=== PATIENT | female | born 1945 ===

== ENCOUNTER 2019-12-13 18:34 | Emergency (ER) | payer MEDICARE ==
[~2019-12-13] VITALS: Ht 154.9 cm; Wt 77.3 kg
[2019-12-13 20:04] LABS: BASOPHILS % (AUTO) 0.4 % (0.0-2.0); EOSINOPHILS % (AUTO) 1.9 % (1.0-6.0); HEMATOCRIT 37.4 % (36-46); HEMOGLOBIN 12.1 g/dL (12.0-16.0); LYMPHOCYTES # (AUTO) 1.8 K/uL (1.0-4.8); LYMPHOCYTES % (AUTO) 21.8 % (22.0-44.0); MEAN CORPUSCULAR HEMOGLOBIN 27.4 pg (26.0-34.0); MEAN CORPUSCULAR HGB CONC 32.2 G/dL (31.0-37.0); MEAN CORPUSCULAR VOLUME 85 fL (80-100); MONOCYTES # (AUTO) 0.5 K/uL (0.1-1.0); MONOCYTES % (AUTO) 5.7 % (2.0-9.0); NEUTROPHILS # (AUTO) 5.7 K/uL (1.8-7.7); NEUTROPHILS % (AUTO) 70.2 % (40.0-70.0); PLATELET COUNT (AUTO) 307 K/uL (150-450); RED CELL DISTRIBUTION WIDTH 16.2 % (11.5-14.5)
[2019-12-13 20:25] LABS: ANION GAP 6 mmol/L (8-16); CALCIUM, TOTAL 8.8 mg/dL (8.8-10.5); CARBON DIOXIDE 31 mmol/L (22-29); CHLORIDE 108 mmol/L (98-107); CREATININE 0.85 mg/dL (0.60-1.30); GLUCOSE,RANDOM 112 mg/dL (70-110); POTASSIUM 3.4 mmol/L (3.5-5.1); SODIUM SERUM 145 mmol/L (136-145); UREA NITROGEN, BLOOD 12 mg/dL (7-18)
[2019-12-13 20:26] VITALS: BP 112/68
[2019-12-13 20:28] LABS: GLOMERULAR FILTR. RATE CALC > 60 mL/min (>60)
[2019-12-13 20:39] LABS: ALANINE AMINOTRANSFERASE 10 U/L (12-78); ALBUMIN 2.8 g/dL (3.4-5.0); ALKALINE PHOSPHATASE 74 U/L (46-116); ASPARTATE AMINOTRANSFERASE 14 U/L (15-37); BILIRUBIN,TOTAL 0.2 mg/dL (0.1-1.0); LIPASE 164 U/L (73-393); TOTAL PROTEIN, SERUM 6.4 g/dL (6.4-8.2)
[2019-12-13] MEDS ORDERED: DIPHENOXYLATE/ATROP 2.5-0.025 MG TABLET PO ONE (20:45)
[2019-12-13] MEDS: POTASSIUM CHLORIDE 20 MEQ ER TABLET PO ONE ×2 (21:06→21:33)
[2019-12-15 11:50] LABS: GLUCOSE,POINT OF CARE 107 MG/DL (70-110)
== END 2019-12-13 21:27 | disposition home or self-care (01) ==
LOC: EMS 19:36
DX: R19.7 Diarrhea, unspecified (principal); I48.91 Unspecified atrial fibrillation; J44.9 Chronic obstructive pulmonary disease, unspecified; E11.9 Type 2 diabetes mellitus without complications; I25.2 Old myocardial infarction; F17.210 Nicotine dependence, cigarettes, uncomplicated

== ENCOUNTER 2019-12-23 11:44 | Inpatient (IN) | payer MEDICARE, OTHER ==
[~2019-12-23] VITALS: Ht 154.9 cm; Wt 75.0 kg
[2019-12-23 12:03] LABS: GLUCOSE,POINT OF CARE 161 MG/DL (70-110)
[2019-12-23] MEDS ORDERED: MethylPREDNISolone SOD SUCC 125 MG/2 ML VIAL IVP ONE (12:15)
[2019-12-23 12:33] LABS: BASOPHILS % (AUTO) 1.2 % (0.0-2.0); EOSINOPHILS % (AUTO) 1.4 % (1.0-6.0); HEMOGLOBIN 13.1 g/dL (12.0-16.0); LYMPHOCYTES # (AUTO) 2.5 K/uL (1.0-4.8); LYMPHOCYTES % (AUTO) 29.4 % (22.0-44.0); MEAN CORPUSCULAR VOLUME 85 fL (80-100); MONOCYTES # (AUTO) 0.6 K/uL (0.1-1.0); MONOCYTES % (AUTO) 7.1 % (2.0-9.0); NEUTROPHILS # (AUTO) 5.2 K/uL (1.8-7.7); NEUTROPHILS % (AUTO) 60.9 % (40.0-70.0); PLATELET COUNT (AUTO) 284 K/uL (150-450); RED BLOOD CELL COUNT(AUTO) 4.85 MIL/uL (4.00-5.20); RED CELL DISTRIBUTION WIDTH 16.7 % (11.5-14.5)
[2019-12-23 12:42] LABS: ANION GAP 6 mmol/L (8-16); CALCIUM, TOTAL 9.3 mg/dL (8.8-10.5); CARBON DIOXIDE 32 mmol/L (22-29); CHLORIDE 106 mmol/L (98-107); CREATININE 0.66 mg/dL (0.60-1.30); GLUCOSE,RANDOM 140 mg/dL (70-110); POTASSIUM 3.4 mmol/L (3.5-5.1); SODIUM SERUM 144 mmol/L (136-145); UREA NITROGEN, BLOOD 11 mg/dL (7-18)
[2019-12-23 12:43] LABS: GLOMERULAR FILTR. RATE CALC > 60 mL/min (>60)
[2019-12-23 12:51] LABS: ALANINE AMINOTRANSFERASE 9 U/L (12-78); ALKALINE PHOSPHATASE 82 U/L (46-116); ASPARTATE AMINOTRANSFERASE 13 U/L (15-37); BILIRUBIN,TOTAL 0.3 mg/dL (0.1-1.0); TOTAL PROTEIN, SERUM 6.8 g/dL (6.4-8.2)
[2019-12-23 12:56] LABS: B-TYPE NATRIURETIC PEPTIDE 283 pg/mL (0-100)
[2019-12-23] MEDS ORDERED: FUROSEMIDE 40 MG/4 ML VIAL IVP ONE (13:00)
[2019-12-23] MEDS ORDERED: ONDANSETRON HCL 4 MG/2 ML VIAL IVP PRN (13:30)
[2019-12-23] MEDS ORDERED: ACETAMINOPHEN 325 MG TABLET PO PRN (13:30)
[2019-12-23 15:04] VITALS: BP 172/93
[2019-12-23] MEDS: IPRATROPIUM BROMIDE 0.5 MG/2.5 ML NEB SOLUTION NEB SCH ×3 (15:10→23:48)
[2019-12-23] MEDS: ALBUTEROL SULFATE 2.5 MG/0.5 ML NEB SOLUTION NEB SCH ×3 (15:11→23:48)
[2019-12-23 15:52] VITALS: BP 159/75
[2019-12-23 17:58] LABS: GLUCOMETER DEV NAME(LOC) 5S.1; GLUCOSE,POINT OF CARE 211 MG/DL (70-110)
[2019-12-23 19:52] VITALS: BP 136/72
[2019-12-23 22:22] LABS: GLUCOMETER DEV NAME(LOC) 5S.1; GLUCOSE,POINT OF CARE 189 MG/DL (70-110)
[2019-12-23] MEDS ORDERED: DEXTROSE 50%-WATER 25 GM/50 ML SYRINGE IVP PRN (22:45)
[2019-12-23] MEDS: INSULIN LISPRO 100 UNITS/ML SQ PRN (23:01)
[2019-12-24 00:13] VITALS: BP 105/56
[2019-12-24 02:30] LABS: GLUCOMETER DEV NAME(LOC) 5S.1; GLUCOSE,POINT OF CARE 323 MG/DL (70-110)
[2019-12-24] MEDS ORDERED: 0.9% SODIUM CHLORIDE 10 ML SYRINGE IVP PRN (03:15)
[2019-12-24] MEDS ORDERED: ALBUTEROL SULFATE 2.5 MG/0.5 ML NEB SOLUTION NEB PRN (03:15)
[2019-12-24] MEDS ORDERED: DEXTROSE 50%-WATER 25 GM/50 ML SYRINGE IVP PRN (03:15)
[2019-12-24] MEDS ORDERED: INSULIN LISPRO 100 UNITS/ML SQ PRN (03:15)
[2019-12-24] MEDS ORDERED: MAGNESIUM HYDROXIDE SUSPENSION 30 ML UDCUP PO PRN (03:15)
[2019-12-24] MEDS ORDERED: POTASSIUM CHL 10 MEQ/WATER 50 ML IV PRN (03:15)
[2019-12-24] MEDS ORDERED: POTASSIUM CHLORIDE 20 MEQ ER TABLET PO PRN (03:15)
[2019-12-24] MEDS ORDERED: OxyCODONE HCL/ACETAMINOPHEN 5-325 MG TABLET PO PRN ×2 (03:15)
[2019-12-24] MEDS ORDERED: ACETAMINOPHEN 325 MG TABLET PO PRN (03:15)
[2019-12-24] MEDS ORDERED: SODIUM CHLORIDE 0.9% 250 ML IV ONE (03:29)
[2019-12-24] MEDS: MethylPREDNISolone SOD SUCC 125 MG/2 ML VIAL IVP SCH ×4 (04:13→23:55)
[2019-12-24] MEDS: AZITHROMYCIN 500 MG/NS 250 ML IV SCH (04:13)
[2019-12-24 04:25] VITALS: BP 146/75
[2019-12-24] MEDS: INSULIN LISPRO 100 UNITS/ML SQ PRN ×4 (06:28→21:07)
[2019-12-24 07:03] LABS: GLUCOMETER DEV NAME(LOC) 5S.1; GLUCOSE,POINT OF CARE 185 MG/DL (70-110)
[2019-12-24 07:59] VITALS: BP 104/50
[2019-12-24] MEDS: IPRATROPIUM BROMIDE 0.5 MG/2.5 ML NEB SOLUTION NEB SCH ×3 (08:26→19:49)
[2019-12-24] MEDS: ALBUTEROL SULFATE 2.5 MG/0.5 ML NEB SOLUTION NEB SCH ×3 (08:26→19:49)
[2019-12-24] MEDS: ASPIRIN 81 MG CHEWABLE TABLET PO SCH (08:46)
[2019-12-24] MEDS: DOCUSATE SODIUM 100 MG CAPSULE PO SCH ×2 (08:47→21:05)
[2019-12-24] MEDS: FUROSEMIDE 20 MG/2 ML VIAL IVP SCH (08:47)
[2019-12-24] MEDS: FAMOTIDINE 10 MG/ML 2 ML VIAL IVP SCH (08:47)
[2019-12-24 11:18] VITALS: BP 146/51
[2019-12-24 16:24] VITALS: BP 147/67
[2019-12-24 20:45] VITALS: BP 152/60
[2019-12-25] VITALS (7 sets, daily range): BP systolic 125–159; BP diastolic 56–89
[2019-12-25 00:11] LABS: GLUCOMETER DEV NAME(LOC) 5S.1; GLUCOSE,POINT OF CARE 319 MG/DL (70-110)
[2019-12-25 00:11] LABS: GLUCOMETER DEV NAME(LOC) 5S.1; GLUCOSE,POINT OF CARE 367 MG/DL (70-110)
[2019-12-25] MEDS: AZITHROMYCIN 500 MG/NS 250 ML IV SCH (02:21)
[2019-12-25] MEDS: ALBUTEROL SULFATE 2.5 MG/0.5 ML NEB SOLUTION NEB SCH ×4 (02:22→20:21)
[2019-12-25] MEDS: IPRATROPIUM BROMIDE 0.5 MG/2.5 ML NEB SOLUTION NEB SCH ×4 (02:22→20:21)
[2019-12-25] MEDS: INSULIN LISPRO 100 UNITS/ML SQ PRN ×4 (06:35→21:01)
[2019-12-25 08:08] LABS: HEMATOCRIT 37.4 % (36-46); HEMOGLOBIN 11.7 g/dL (12.0-16.0); MEAN CORPUSCULAR HEMOGLOBIN 26.6 pg (26.0-34.0); MEAN CORPUSCULAR HGB CONC 31.4 G/dL (31.0-37.0); MEAN CORPUSCULAR VOLUME 85 fL (80-100); PLATELET COUNT (AUTO) 309 K/uL (150-450); RED BLOOD CELL COUNT(AUTO) 4.42 MIL/uL (4.00-5.20); RED CELL DISTRIBUTION WIDTH 17.2 % (11.5-14.5)
[2019-12-25 08:16] LABS: CALCIUM, TOTAL 9.2 mg/dL (8.8-10.5); CREATININE 0.91 mg/dL (0.60-1.30); POTASSIUM 4.1 mmol/L (3.5-5.1)
[2019-12-25] MEDS: DOCUSATE SODIUM 100 MG CAPSULE PO SCH ×2 (09:00→21:00)
[2019-12-25 09:12] LABS: BAND NEUTROPHILS % (MANUAL) 5 % (0-5); LYMPHOCYTES % (MANUAL) 4 % (22-44); MONOCYTES % (MANUAL) 1 % (2-9); SEGMENTED NEUTROPHILS % 90 % (40-70); WBC MORPHOLOGY TOXIC GRANULATION
[2019-12-25] MEDS: MethylPREDNISolone SOD SUCC 125 MG/2 ML VIAL IVP SCH ×2 (09:19→15:42)
[2019-12-25] MEDS: FUROSEMIDE 20 MG/2 ML VIAL IVP SCH (09:19)
[2019-12-25] MEDS: FAMOTIDINE 10 MG/ML 2 ML VIAL IVP SCH (09:20)
[2019-12-25] MEDS: ASPIRIN 81 MG CHEWABLE TABLET PO SCH (09:20)
[2019-12-25] MEDS: AmLODIPine BESYLATE 5 MG TABLET PO SCH (16:31)
[2019-12-25] MEDS: PredniSONE 20 MG TABLET PO SCH (21:00)
[2019-12-26] MEDS: IPRATROPIUM BROMIDE 0.5 MG/2.5 ML NEB SOLUTION NEB SCH ×4 (02:00→20:24)
[2019-12-26] MEDS: ALBUTEROL SULFATE 2.5 MG/0.5 ML NEB SOLUTION NEB SCH ×4 (02:00→20:24)
[2019-12-26] MEDS: AZITHROMYCIN 500 MG/NS 250 ML IV SCH (03:25)
[2019-12-26 04:50] VITALS: BP 147/72
[2019-12-26 06:08] LABS: GLUCOMETER DEV NAME(LOC) 5S.2A; GLUCOSE,POINT OF CARE 157 MG/DL (70-110)
[2019-12-26 06:08] LABS: GLUCOMETER DEV NAME(LOC) 5S.2A; GLUCOSE,POINT OF CARE 141 MG/DL (70-110)
[2019-12-26] MEDS: INSULIN LISPRO 100 UNITS/ML SQ PRN ×4 (06:23→22:27)
[2019-12-26] MEDS: AmLODIPine BESYLATE 5 MG TABLET PO SCH (09:45)
[2019-12-26] MEDS: PredniSONE 20 MG TABLET PO SCH ×2 (09:46→22:09)
[2019-12-26] MEDS: ASPIRIN 81 MG CHEWABLE TABLET PO SCH (09:46)
[2019-12-26] MEDS: DOCUSATE SODIUM 100 MG CAPSULE PO SCH ×2 (09:46→22:09)
[2019-12-26] MEDS: FUROSEMIDE 20 MG/2 ML VIAL IVP SCH (09:47)
[2019-12-26] MEDS: FAMOTIDINE 10 MG/ML 2 ML VIAL IVP SCH (11:13)
[2019-12-26 12:00] VITALS: BP 125/75
[2019-12-26 16:02] LABS: ABG A-A DIFF O2 52.7 mmHg (10-20.0); ABG BASE EXCESS 1.4 mmol/L (-2.0-3.0); ABG CARBOXYHEMOGLOBIN 0.6 % (0.0-1.5); ABG HCO3 25.5 mmol/L (22.0-26.0); ABG METHEMOGLOBIN 0.1 % (0.0-1.5); ABG OXYGEN CONTENT 15.1 mL/dL (15.0-23.0); ABG OXYGEN SATURATION 84.7 % (95.0-98.0); ABG OXYHEMOGLOBIN 84.1 % (94.0-100.0); ABG PCO2 39 mmHg (35-45); ABG TOTAL HEMOGLOBIN 12.8 G/dL (12.0-18.0); PO2, ARTERIAL BG 50.8 mmHg (75.0-83.0); SOURCE, BLOOD GAS ARTERIAL; TEMPERATURE, FAHRENHEIT, BG 98.8 FAHREN (96.0-98.6)
[2019-12-26 16:03] LABS: O2 DEVICE,BLOOD GAS ROOM AIR (ROOM AIR); SITE, BLOOD GAS LFT BRACHIAL
[2019-12-26 18:14] LABS: GLUCOMETER DEV NAME(LOC) 5S.1; GLUCOSE,POINT OF CARE 291 MG/DL (70-110)
[2019-12-26 18:14] LABS: GLUCOMETER DEV NAME(LOC) 5S.1; GLUCOSE,POINT OF CARE 188 MG/DL (70-110)
[2019-12-26 18:14] LABS: GLUCOMETER DEV NAME(LOC) 5S.2A; GLUCOSE,POINT OF CARE 235 MG/DL (70-110)
[2019-12-26 18:15] LABS: GLUCOMETER DEV NAME(LOC) 5S.1; GLUCOSE,POINT OF CARE 240 MG/DL (70-110)
[2019-12-26 18:15] LABS: GLUCOMETER DEV NAME(LOC) 5S.1; GLUCOSE,POINT OF CARE 192 MG/DL (70-110)
[2019-12-26 18:15] LABS: GLUCOMETER DEV NAME(LOC) 5S.1; GLUCOSE,POINT OF CARE 292 MG/DL (70-110)
[2019-12-26 18:15] LABS: GLUCOMETER DEV NAME(LOC) 5S.1; GLUCOSE,POINT OF CARE 349 MG/DL (70-110)
[2019-12-26 21:05] VITALS: BP 145/71
[2019-12-26 22:32] LABS: GLUCOMETER DEV NAME(LOC) 5S.2A; GLUCOSE,POINT OF CARE 230 MG/DL (70-110)
[2019-12-27] VITALS: BP 155/74
[2019-12-27] MEDS: IPRATROPIUM BROMIDE 0.5 MG/2.5 ML NEB SOLUTION NEB SCH ×3 (02:00→14:26)
[2019-12-27] MEDS: ALBUTEROL SULFATE 2.5 MG/0.5 ML NEB SOLUTION NEB SCH ×3 (02:00→14:26)
[2019-12-27 04:52] VITALS: BP 150/82
[2019-12-27] MEDS: AZITHROMYCIN 500 MG/NS 250 ML IV SCH (04:54)
[2019-12-27] MEDS: INSULIN LISPRO 100 UNITS/ML SQ PRN ×3 (06:47→18:12)
[2019-12-27 07:31] LABS: GLUCOMETER DEV NAME(LOC) 5S.1; GLUCOSE,POINT OF CARE 227 MG/DL (70-110)
[2019-12-27 08:23] VITALS: BP 127/78
[2019-12-27] MEDS: FUROSEMIDE 20 MG/2 ML VIAL IVP SCH (09:00)
[2019-12-27] MEDS: FAMOTIDINE 10 MG/ML 2 ML VIAL IVP SCH (09:00)
[2019-12-27] MEDS: PredniSONE 20 MG TABLET PO SCH ×2 (10:28→20:15)
[2019-12-27] MEDS: ASPIRIN 81 MG CHEWABLE TABLET PO SCH (10:28)
[2019-12-27] MEDS: AmLODIPine BESYLATE 5 MG TABLET PO SCH (10:29)
[2019-12-27] MEDS: DOCUSATE SODIUM 100 MG CAPSULE PO SCH ×2 (10:30→20:15)
[2019-12-27 11:40] VITALS: BP 129/58
[2019-12-27 14:44] LABS: GLUCOMETER DEV NAME(LOC) 5S.1; GLUCOSE,POINT OF CARE 172 MG/DL (70-110)
[2019-12-27] MEDS ORDERED: ASPI-728 PO (15:26)
[2019-12-27] MEDS ORDERED: PRED20 PO (15:26)
[2019-12-27] MEDS ORDERED: IPRNEB NEB (15:26)
[2019-12-27] MEDS ORDERED: AUD NEB (15:26)
[2019-12-27 15:30] VITALS: BP 113/73
[2019-12-27] MEDS ORDERED: AMLO5TAB9 PO (19:09)
[2019-12-27 20:33] VITALS: BP 153/83
[2019-12-28 06:00] LABS: GLUCOMETER DEV NAME(LOC) 5S.2A; GLUCOSE,POINT OF CARE 244 MG/DL (70-110)
== END 2019-12-27 20:25 | disposition home or self-care (01) | DRG 189 ==
LOC: EMS 11:45 → 5S 13:33
PROVIDERS: ADMIT Internal Medicine; ATTEND Internal Medicine
DX: J96.01 Acute respiratory failure with hypoxia (principal); J44.1 Chronic obstructive pulmonary disease with (acute) exacerbation; I48.91 Unspecified atrial fibrillation; E11.9 Type 2 diabetes mellitus without complications; F17.200 Nicotine dependence, unspecified, uncomplicated; I50.9 Heart failure, unspecified; I25.2 Old myocardial infarction
CPT/HCPCS: 36600; 82805; 84132; 93005; 94640; 99291; G0378; J0456; J1940; J2930; J3490; J7050

== ENCOUNTER 2020-05-07 00:06 | Emergency (ER) | payer MEDICARE, OTHER ==
[~2020-05-07] VITALS: Ht 154.9 cm; Wt 68.2 kg
[~2020-05-07 00:06] MED LIST: AMLO5TAB9 PO; ASPI-728 PO; AUD NEB; IPRNEB NEB; PRED20 PO
[2020-05-07] MEDS ORDERED: METF-960 PO (02:53)
[2020-05-07] MEDS ORDERED: INSU100V SQ (02:53)
[2020-05-07] MEDS ORDERED: MetFORMIN HCL 500 MG TABLET PO ONE (04:00)
[2020-05-07 05:09] VITALS: BP 138/74
== END 2020-05-07 05:52 | disposition home or self-care (01) ==
LOC: EMS 00:07
DX: E11.9 Type 2 diabetes mellitus without complications (principal); I48.91 Unspecified atrial fibrillation; J44.9 Chronic obstructive pulmonary disease, unspecified; I25.2 Old myocardial infarction; F17.210 Nicotine dependence, cigarettes, uncomplicated; Z79.82 Long term (current) use of aspirin; Z79.84 Long term (current) use of oral hypoglycemic drugs; Z79.4 Long term (current) use of insulin

== ENCOUNTER 2020-05-07 05:53 | Inpatient (IN) | payer MEDICARE, MEDICAID ==
[~2020-05-07] VITALS: Ht 154.9 cm; Wt 70.4 kg
[~2020-05-07 05:53] MED LIST changes: +INSU100V SQ; +METF-960 PO
[2020-05-07] MEDS ORDERED: SODIUM CHLORIDE 0.9% 500 ML IV ONE (06:15)
[2020-05-07 06:28] LABS: BASOPHILS % (AUTO) 0.4 % (0.0-2.0); EOSINOPHILS % (AUTO) 0.7 % (1.0-6.0); HEMATOCRIT 25.1 % (36-46); HEMOGLOBIN 7.8 g/dL (12.0-16.0); LYMPHOCYTES # (AUTO) 1.2 K/uL (1.0-4.8); MEAN CORPUSCULAR HEMOGLOBIN 25.1 pg (26.0-34.0); MEAN CORPUSCULAR VOLUME 81 fL (80-100); MONOCYTES # (AUTO) 0.6 K/uL (0.1-1.0); MONOCYTES % (AUTO) 6.6 % (2.0-9.0); NEUTROPHILS # (AUTO) 6.8 K/uL (1.8-7.7); NEUTROPHILS % (AUTO) 78.3 % (40.0-70.0); PLATELET COUNT (AUTO) 290 K/uL (150-450); RED CELL DISTRIBUTION WIDTH 18.6 % (11.5-14.5)
[2020-05-07] MEDS ORDERED: SODIUM CHLORIDE 0.9% 1,000 ML IV ONE (06:45)
[2020-05-07] MEDS ORDERED: AZITHROMYCIN 500 MG/NS 250 ML IV ONE ×2 (07:00→07:15)
[2020-05-07 07:07] LABS: ALANINE AMINOTRANSFERASE 16 U/L (12-78); ALKALINE PHOSPHATASE 67 U/L (46-116); ANION GAP 10 mmol/L (8-16); ASPARTATE AMINOTRANSFERASE 10 U/L (15-37); BILIRUBIN,TOTAL 0.5 mg/dL (0.1-1.0); CALCIUM, TOTAL 8.8 mg/dL (8.8-10.5); CARBON DIOXIDE 25 mmol/L (22-29); CHLORIDE 103 mmol/L (98-107); CREATINE KINASE, TOTAL ONLY 30 U/L (26-192); CREATININE 0.89 mg/dL (0.60-1.30); GLUCOSE,RANDOM 244 mg/dL (70-110); SODIUM SERUM 138 mmol/L (136-145); THYROID STIMULATING HORMONE 1.02 uIU/mL (0.36-3.74); TOTAL PROTEIN, SERUM 6.7 g/dL (6.4-8.2); UREA NITROGEN, BLOOD 22 mg/dL (7-18)
[2020-05-07 07:15] LABS: GLOMERULAR FILTR. RATE CALC > 60 mL/min (>60); POTASSIUM 2.7 mmol/L (3.5-5.1)
[2020-05-07] MEDS ORDERED: CefTRIAXone 1 GM/DEXTROSE 50 ML IV ONE (07:15)
[2020-05-07] MEDS ORDERED: POTASSIUM CHLORIDE 20 MEQ ER TABLET PO ONE (07:15)
[2020-05-07] MEDS ORDERED: ASPIRIN 325 MG TABLET PO ONE (07:45)
[2020-05-07] MEDS: POTASSIUM CHL 10 MEQ/WATER 50 ML IV SCH ×4 (08:29→16:55)
[2020-05-07] MEDS ORDERED: DEXTROSE 50%-WATER 25 GM/50 ML SYRINGE IVP PRN (10:45)
[2020-05-07] MEDS ORDERED: ACETAMINOPHEN 325 MG TABLET PO PRN (11:00)
[2020-05-07] MEDS ORDERED: BISACODYL 10 MG RECTAL RECTAL SUPPOSITORY PR PRN (11:00)
[2020-05-07] MEDS ORDERED: DOCUSATE SODIUM 100 MG CAPSULE PO PRN (11:00)
[2020-05-07] MEDS ORDERED: ONDANSETRON HCL 4 MG/2 ML VIAL IVP PRN (11:00)
[2020-05-07] MEDS ORDERED: ALBUTEROL SULFATE/IPRATROPIUM 100-20 MCG/SPRAY 4 GM INHALER IH PRN (11:00)
[2020-05-07] MEDS ORDERED: MAGNESIUM HYDROXIDE SUSPENSION 30 ML UDCUP PO PRN (11:00)
[2020-05-07] MEDS ORDERED: 0.9% SODIUM CHLORIDE 10 ML SYRINGE IVP PRN (11:00)
[2020-05-07] MEDS: ALBUTEROL SULFATE/IPRATROPIUM 100-20 MCG/SPRAY 4 GM INHALER IH SCH ×3 (12:00→22:01)
[2020-05-07] MEDS: PANTOPRAZOLE SODIUM 40 MG DR TABLET PO SCH (12:33)
[2020-05-07] MEDS: CARVEDILOL 3.125 MG TABLET PO SCH ×2 (12:33→21:15)
[2020-05-07] MEDS: LOSARTAN POTASSIUM 25 MG TABLET PO SCH ×2 (12:34→21:15)
[2020-05-07] MEDS ORDERED: SODIUM CHLORIDE 0.9% 250 ML IV ONE (14:10)
[2020-05-07 14:54] VITALS: BP 123/55
[2020-05-07 16:00] VITALS: BP 132/55
[2020-05-07] MEDS: INSULIN LISPRO 100 UNITS/ML SQ PRN ×2 (18:12→21:41)
[2020-05-07 19:30] VITALS: BP 141/50
[2020-05-07 20:24] LABS: GLUCOMETER DEV NAME(LOC) 5S.1; GLUCOSE,POINT OF CARE 147 MG/DL (70-110)
[2020-05-07 21:50] LABS: GLUCOMETER DEV NAME(LOC) 5N.3; GLUCOSE,POINT OF CARE 201 MG/DL (70-110)
[2020-05-07 23:33] VITALS: BP 158/66
[2020-05-08 04:59] VITALS: BP 148/62
[2020-05-08] MEDS: ALBUTEROL SULFATE/IPRATROPIUM 100-20 MCG/SPRAY 4 GM INHALER IH SCH ×4 (05:26→17:04)
[2020-05-08] MEDS: INSULIN LISPRO 100 UNITS/ML SQ PRN ×4 (06:07→22:41)
[2020-05-08 08:31] LABS: HEMOGLOBIN A1C 7.9 % (3.8-5.6)
[2020-05-08 08:33] VITALS: BP 103/59
[2020-05-08 08:37] LABS: % IRON SATURATION 3.4 % (22-44); IRON, SERUM 12 mcg/dL (50-175); TOTAL IRON BINDING CAPACITY 347 mcg/dL (250-450)
[2020-05-08] MEDS: PANTOPRAZOLE SODIUM 40 MG DR TABLET PO SCH (08:47)
[2020-05-08] MEDS: CARVEDILOL 3.125 MG TABLET PO SCH ×2 (08:47→21:00)
[2020-05-08] MEDS: LOSARTAN POTASSIUM 25 MG TABLET PO SCH ×2 (08:48→21:00)
[2020-05-08] MEDS: AmLODIPine BESYLATE 5 MG TABLET PO SCH (08:51)
[2020-05-08] MEDS ORDERED: ASPIRIN 81 MG CHEWABLE TABLET PO SCH ×2 (09:00)
[2020-05-08 09:08] LABS: ALANINE AMINOTRANSFERASE 15 U/L (12-78); ALBUMIN 2.7 g/dL (3.4-5.0); ALKALINE PHOSPHATASE 61 U/L (46-116); ANION GAP 10 mmol/L (8-16); ASPARTATE AMINOTRANSFERASE 13 U/L (15-37); BILIRUBIN,TOTAL 0.4 mg/dL (0.1-1.0); CALCIUM, TOTAL 8.7 mg/dL (8.8-10.5); CARBON DIOXIDE 25 mmol/L (22-29); CHLORIDE 106 mmol/L (98-107); CREATININE 0.79 mg/dL (0.60-1.30); FERRITIN 61 ng/mL (8-252); FREE T4 (FREE THYROXINE) 1.03 ng/dL (0.76-1.46); GLUCOSE,RANDOM 178 mg/dL (70-110); SODIUM SERUM 141 mmol/L (136-145); THYROID STIMULATING HORMONE 0.61 uIU/mL (0.36-3.74); TOTAL PROTEIN, SERUM 6.4 g/dL (6.4-8.2); UREA NITROGEN, BLOOD 20 mg/dL (7-18)
[2020-05-08 09:09] LABS: GLOMERULAR FILTR. RATE CALC > 60 mL/min (>60)
[2020-05-08] MEDS ORDERED: MAGNESIUM SULFATE 4 GM/WATER 100 ML IV PRN (09:30)
[2020-05-08] MEDS ORDERED: POTASSIUM CHL 10 MEQ/WATER 50 ML IV PRN (09:30)
[2020-05-08] MEDS ORDERED: MAGNESIUM SULFATE 2 GM/WATER 50 ML IV PRN (09:30)
[2020-05-08] MEDS ORDERED: MAGNESIUM OXIDE 400 MG TABLET PO PRN (09:30)
[2020-05-08] MEDS ORDERED: POTASSIUM CHLORIDE 20 MEQ ER TABLET PO PRN (09:30)
[2020-05-08 09:31] LABS: BASOPHILS % (AUTO) 0.2 % (0.0-2.0); EOSINOPHILS % (AUTO) 0.8 % (1.0-6.0); HEMOGLOBIN 7.7 g/dL (12.0-16.0); LYMPHOCYTES # (AUTO) 1.3 K/uL (1.0-4.8); LYMPHOCYTES % (AUTO) 12.2 % (22.0-44.0); MEAN CORPUSCULAR HGB CONC 30.6 G/dL (31.0-37.0); MEAN CORPUSCULAR VOLUME 82 fL (80-100); MONOCYTES # (AUTO) 0.7 K/uL (0.1-1.0); MONOCYTES % (AUTO) 6.5 % (2.0-9.0); NEUTROPHILS # (AUTO) 8.6 K/uL (1.8-7.7); NEUTROPHILS % (AUTO) 80.3 % (40.0-70.0); PLATELET COUNT (AUTO) 275 K/uL (150-450); RED BLOOD CELL COUNT(AUTO) 3.06 MIL/uL (4.00-5.20); RED CELL DISTRIBUTION WIDTH 18.1 % (11.5-14.5)
[2020-05-08 10:00] VITALS: BP_SYST 130; BP_SYST 133; BP_SYST 93; BP_DIAS 57; BP_DIAS 58; BP_DIAS 84
[2020-05-08 12:50] VITALS: BP 130/84
[2020-05-08] MEDS: FERROUS SULFATE 325 MG EC TABLET PO SCH ×2 (13:13→17:01)
[2020-05-08 16:30] VITALS: BP 106/60
[2020-05-08 18:20] LABS: GLUCOMETER DEV NAME(LOC) 5S.2A; GLUCOSE,POINT OF CARE 169 MG/DL (70-110)
[2020-05-08 20:30] VITALS: BP 99/60
[2020-05-08] MEDS: DOCUSATE SODIUM 100 MG CAPSULE PO SCH (21:00)
[2020-05-08 22:31] LABS: GLUCOMETER DEV NAME(LOC) 5N.3; GLUCOSE,POINT OF CARE 151 MG/DL (70-110)
[2020-05-09 00:28] VITALS: BP 98/75
[2020-05-09] MEDS: ALBUTEROL SULFATE/IPRATROPIUM 100-20 MCG/SPRAY 4 GM INHALER IH SCH ×4 (00:50→18:00)
[2020-05-09 02:39] LABS: GLUCOMETER DEV NAME(LOC) 5S.2A; GLUCOSE,POINT OF CARE 251 MG/DL (70-110)
[2020-05-09 04:27] VITALS: BP 98/51
[2020-05-09] MEDS: INSULIN LISPRO 100 UNITS/ML SQ PRN ×4 (06:08→21:23)
[2020-05-09 08:08] VITALS: BP 154/61
[2020-05-09] MEDS: DOCUSATE SODIUM 100 MG CAPSULE PO SCH ×2 (08:17→20:51)
[2020-05-09] MEDS: FERROUS SULFATE 325 MG EC TABLET PO SCH ×3 (08:17→18:22)
[2020-05-09] MEDS: PANTOPRAZOLE SODIUM 40 MG DR TABLET PO SCH (08:17)
[2020-05-09] MEDS: CARVEDILOL 3.125 MG TABLET PO SCH ×2 (08:19→20:51)
[2020-05-09] MEDS: LOSARTAN POTASSIUM 25 MG TABLET PO SCH ×2 (08:19→20:50)
[2020-05-09] MEDS: AmLODIPine BESYLATE 5 MG TABLET PO SCH (09:00)
[2020-05-09 09:04] LABS: BASOPHILS % (AUTO) 0.8 % (0.0-2.0); EOSINOPHILS % (AUTO) 0.8 % (1.0-6.0); HEMOGLOBIN 8.6 g/dL (12.0-16.0); LYMPHOCYTES # (AUTO) 1.3 K/uL (1.0-4.8); LYMPHOCYTES % (AUTO) 13.9 % (22.0-44.0); MEAN CORPUSCULAR HEMOGLOBIN 24.7 pg (26.0-34.0); MEAN CORPUSCULAR HGB CONC 30.8 G/dL (31.0-37.0); MEAN CORPUSCULAR VOLUME 80 fL (80-100); MONOCYTES # (AUTO) 0.6 K/uL (0.1-1.0); MONOCYTES % (AUTO) 6.6 % (2.0-9.0); NEUTROPHILS # (AUTO) 7.4 K/uL (1.8-7.7); NEUTROPHILS % (AUTO) 77.9 % (40.0-70.0); PLATELET COUNT (AUTO) 316 K/uL (150-450); RED BLOOD CELL COUNT(AUTO) 3.49 MIL/uL (4.00-5.20); RED CELL DISTRIBUTION WIDTH 18.8 % (11.5-14.5)
[2020-05-09 09:08] LABS: GLUCOMETER DEV NAME(LOC) 5S.2A; GLUCOSE,POINT OF CARE 155 MG/DL (70-110)
[2020-05-09 09:22] LABS: ALANINE AMINOTRANSFERASE 15 U/L (12-78); ALKALINE PHOSPHATASE 65 U/L (46-116); ANION GAP 10 mmol/L (8-16); ASPARTATE AMINOTRANSFERASE 11 U/L (15-37); BILIRUBIN,TOTAL 0.4 mg/dL (0.1-1.0); CARBON DIOXIDE 27 mmol/L (22-29); CHLORIDE 107 mmol/L (98-107); CREATININE 0.66 mg/dL (0.60-1.30); GLUCOSE,RANDOM 135 mg/dL (70-110); POTASSIUM 3.2 mmol/L (3.5-5.1); SODIUM SERUM 144 mmol/L (136-145); TOTAL PROTEIN, SERUM 7.1 g/dL (6.4-8.2); UREA NITROGEN, BLOOD 12 mg/dL (7-18)
[2020-05-09 09:27] LABS: GLOMERULAR FILTR. RATE CALC > 60 mL/min (>60)
[2020-05-09 09:53] LABS: CALCIUM, TOTAL 8.9 mg/dL (8.8-10.5)
[2020-05-09 11:57] VITALS: BP 142/62
[2020-05-09] MEDS ORDERED: SODIUM CHLORIDE 0.9% 100 ML ONE (12:28)
[2020-05-09] MEDS ORDERED: IOVERSOL 350 MG/ML 100 ML VIAL ONE (12:28)
[2020-05-09] MEDS: ASPIRIN 81 MG CHEWABLE TABLET PO SCH (13:03)
[2020-05-09 15:46] VITALS: BP 113/54
[2020-05-09 20:30] VITALS: BP 115/51
[2020-05-09] MEDS: ATORVASTATIN CALCIUM 10 MG TABLET PO SCH (20:50)
[2020-05-10 00:15] VITALS: BP 126/68
[2020-05-10] MEDS: ALBUTEROL SULFATE/IPRATROPIUM 100-20 MCG/SPRAY 4 GM INHALER IH SCH ×5 (00:29→23:02)
[2020-05-10 04:20] VITALS: BP 126/52
[2020-05-10 05:39] LABS: GLUCOMETER DEV NAME(LOC) 5S.2A; GLUCOSE,POINT OF CARE 156 MG/DL (70-110)
[2020-05-10] MEDS: INSULIN LISPRO 100 UNITS/ML SQ PRN ×3 (06:35→20:59)
[2020-05-10 07:10] LABS: BASOPHILS % (AUTO) 0.8 % (0.0-2.0); HEMATOCRIT 27.3 % (36-46); HEMOGLOBIN 8.6 g/dL (12.0-16.0); LYMPHOCYTES # (AUTO) 1.1 K/uL (1.0-4.8); LYMPHOCYTES % (AUTO) 9.3 % (22.0-44.0); MEAN CORPUSCULAR HGB CONC 31.3 G/dL (31.0-37.0); MEAN CORPUSCULAR VOLUME 80 fL (80-100); MONOCYTES # (AUTO) 0.6 K/uL (0.1-1.0); MONOCYTES % (AUTO) 5.5 % (2.0-9.0); NEUTROPHILS # (AUTO) 9.6 K/uL (1.8-7.7); NEUTROPHILS % (AUTO) 83.4 % (40.0-70.0); PLATELET COUNT (AUTO) 329 K/uL (150-450); RED BLOOD CELL COUNT(AUTO) 3.43 MIL/uL (4.00-5.20); RED CELL DISTRIBUTION WIDTH 18.7 % (11.5-14.5)
[2020-05-10 07:16] LABS: ALANINE AMINOTRANSFERASE 13 U/L (12-78); ALBUMIN 3.1 g/dL (3.4-5.0); ALKALINE PHOSPHATASE 68 U/L (46-116); ANION GAP 10 mmol/L (8-16); ASPARTATE AMINOTRANSFERASE 14 U/L (15-37); BILIRUBIN,TOTAL 0.5 mg/dL (0.1-1.0); CALCIUM, TOTAL 8.8 mg/dL (8.8-10.5); CARBON DIOXIDE 28 mmol/L (22-29); CHLORIDE 104 mmol/L (98-107); CREATININE 0.67 mg/dL (0.60-1.30); GLUCOSE,RANDOM 171 mg/dL (70-110); SODIUM SERUM 142 mmol/L (136-145); TOTAL PROTEIN, SERUM 6.5 g/dL (6.4-8.2); UREA NITROGEN, BLOOD 12 mg/dL (7-18)
[2020-05-10 07:25] LABS: GLOMERULAR FILTR. RATE CALC > 60 mL/min (>60)
[2020-05-10] MEDS: ASPIRIN 81 MG CHEWABLE TABLET PO SCH (09:04)
[2020-05-10] MEDS: PANTOPRAZOLE SODIUM 40 MG DR TABLET PO SCH (09:04)
[2020-05-10] MEDS: LOSARTAN POTASSIUM 25 MG TABLET PO SCH ×2 (09:05→20:59)
[2020-05-10] MEDS: FERROUS SULFATE 325 MG EC TABLET PO SCH ×3 (09:05→18:01)
[2020-05-10] MEDS: AmLODIPine BESYLATE 5 MG TABLET PO SCH (09:05)
[2020-05-10] MEDS: CARVEDILOL 3.125 MG TABLET PO SCH ×2 (09:05→20:56)
[2020-05-10] MEDS: DOCUSATE SODIUM 100 MG CAPSULE PO SCH ×2 (09:05→20:56)
[2020-05-10 09:06] VITALS: BP 141/53
[2020-05-10 10:26] VITALS: BP 130/53
[2020-05-10] MEDS ORDERED: IOVERSOL 350 MG/ML 100 ML VIAL ONE (11:14)
[2020-05-10] MEDS ORDERED: SODIUM CHLORIDE 0.9% 100 ML ONE (11:15)
[2020-05-10 14:14] LABS: GLUCOMETER DEV NAME(LOC) 5N.3; GLUCOSE,POINT OF CARE 138 MG/DL (70-110)
[2020-05-10 14:14] LABS: GLUCOMETER DEV NAME(LOC) 5N.3; GLUCOSE,POINT OF CARE 162 MG/DL (70-110)
[2020-05-10 14:14] LABS: GLUCOMETER DEV NAME(LOC) 5N.3; GLUCOSE,POINT OF CARE 167 MG/DL (70-110)
[2020-05-10 16:33] LABS: GLUCOMETER DEV NAME(LOC) 5N.3; GLUCOSE,POINT OF CARE 177 MG/DL (70-110)
[2020-05-10 16:58] VITALS: BP 101/46
[2020-05-10 19:48] VITALS: BP 116/58
[2020-05-10] MEDS: ATORVASTATIN CALCIUM 10 MG TABLET PO SCH (20:57)
[2020-05-11] VITALS (8 sets, daily range): BP systolic 68–129; BP diastolic 49–77
[2020-05-11] MEDS: ALBUTEROL SULFATE/IPRATROPIUM 100-20 MCG/SPRAY 4 GM INHALER IH SCH ×3 (05:18→17:24)
[2020-05-11] MEDS: INSULIN LISPRO 100 UNITS/ML SQ PRN ×3 (05:18→17:34)
[2020-05-11 08:15] LABS: BASOPHILS % (AUTO) 0.7 % (0.0-2.0); EOSINOPHILS % (AUTO) 0.7 % (1.0-6.0); HEMATOCRIT 26.8 % (36-46); HEMOGLOBIN 8.4 g/dL (12.0-16.0); LYMPHOCYTES % (AUTO) 9.5 % (22.0-44.0); MEAN CORPUSCULAR HGB CONC 31.1 G/dL (31.0-37.0); MEAN CORPUSCULAR VOLUME 80 fL (80-100); MONOCYTES # (AUTO) 0.6 K/uL (0.1-1.0); NEUTROPHILS # (AUTO) 8.7 K/uL (1.8-7.7); NEUTROPHILS % (AUTO) 83.1 % (40.0-70.0); PLATELET COUNT (AUTO) 316 K/uL (150-450); RED BLOOD CELL COUNT(AUTO) 3.34 MIL/uL (4.00-5.20); RED CELL DISTRIBUTION WIDTH 19.3 % (11.5-14.5)
[2020-05-11 08:31] LABS: ALANINE AMINOTRANSFERASE 12 U/L (12-78); ALKALINE PHOSPHATASE 66 U/L (46-116); ANION GAP 7 mmol/L (8-16); ASPARTATE AMINOTRANSFERASE 11 U/L (15-37); BILIRUBIN,TOTAL 0.4 mg/dL (0.1-1.0); CARBON DIOXIDE 30 mmol/L (22-29); CHLORIDE 106 mmol/L (98-107); GLUCOSE,RANDOM 94 mg/dL (70-110); POTASSIUM 3.8 mmol/L (3.5-5.1); SODIUM SERUM 143 mmol/L (136-145); TOTAL PROTEIN, SERUM 6.7 g/dL (6.4-8.2); UREA NITROGEN, BLOOD 12 mg/dL (7-18)
[2020-05-11 08:33] LABS: GLOMERULAR FILTR. RATE CALC > 60 mL/min (>60)
[2020-05-11] MEDS: FERROUS SULFATE 325 MG EC TABLET PO SCH ×3 (08:42→17:32)
[2020-05-11] MEDS: ASPIRIN 81 MG CHEWABLE TABLET PO SCH (08:42)
[2020-05-11] MEDS: PANTOPRAZOLE SODIUM 40 MG DR TABLET PO SCH (08:42)
[2020-05-11] MEDS: DOCUSATE SODIUM 100 MG CAPSULE PO SCH ×2 (08:43→21:56)
[2020-05-11] MEDS: CARVEDILOL 3.125 MG TABLET PO SCH ×2 (09:00→21:56)
[2020-05-11] MEDS: LOSARTAN POTASSIUM 25 MG TABLET PO SCH ×2 (09:00→21:56)
[2020-05-11 12:24] LABS: GLUCOMETER DEV NAME(LOC) 5N.3; GLUCOSE,POINT OF CARE 209 MG/DL (70-110)
[2020-05-11 12:24] LABS: GLUCOMETER DEV NAME(LOC) 5N.3; GLUCOSE,POINT OF CARE 183 MG/DL (70-110)
[2020-05-11 12:47] LABS: GLUCOMETER DEV NAME(LOC) 5S.2A; GLUCOSE,POINT OF CARE 244 MG/DL (70-110)
[2020-05-11 12:48] LABS: GLUCOMETER DEV NAME(LOC) 5S.2A; GLUCOSE,POINT OF CARE 160 MG/DL (70-110)
[2020-05-11 17:40] LABS: GLUCOMETER DEV NAME(LOC) 5S.2A; GLUCOSE,POINT OF CARE 187 MG/DL (70-110)
[2020-05-11] MEDS: ATORVASTATIN CALCIUM 10 MG TABLET PO SCH (21:56)
[2020-05-11 23:20] LABS: GLUCOMETER DEV NAME(LOC) 5N.3; GLUCOSE,POINT OF CARE 128 MG/DL (70-110)
[2020-05-12] VITALS (8 sets, daily range): BP systolic 81–148; BP diastolic 41–84
[2020-05-12] MEDS: ALBUTEROL SULFATE/IPRATROPIUM 100-20 MCG/SPRAY 4 GM INHALER IH SCH ×3 (00:21→18:00)
[2020-05-12] MEDS: INSULIN LISPRO 100 UNITS/ML SQ PRN ×3 (06:27→22:01)
[2020-05-12 07:37] LABS: CHOL/HDL RATIO 3.9 (3.9-5.7)
[2020-05-12] MEDS: DOCUSATE SODIUM 100 MG CAPSULE PO SCH ×2 (09:00→21:52)
[2020-05-12] MEDS: FERROUS SULFATE 325 MG EC TABLET PO SCH ×3 (09:20→18:00)
[2020-05-12] MEDS: ASPIRIN 81 MG CHEWABLE TABLET PO SCH (09:20)
[2020-05-12] MEDS: CARVEDILOL 3.125 MG TABLET PO SCH ×2 (09:20→21:00)
[2020-05-12] MEDS: LOSARTAN POTASSIUM 25 MG TABLET PO SCH ×2 (09:20→21:00)
[2020-05-12] MEDS: PANTOPRAZOLE SODIUM 40 MG DR TABLET PO SCH (09:20)
[2020-05-12 18:28] LABS: GLUCOMETER DEV NAME(LOC) 5S.2A; GLUCOSE,POINT OF CARE 173 MG/DL (70-110)
[2020-05-12 20:34] LABS: GLUCOMETER DEV NAME(LOC) 5N.3; GLUCOSE,POINT OF CARE 185 MG/DL (70-110)
[2020-05-12] MEDS: ATORVASTATIN CALCIUM 10 MG TABLET PO SCH (21:52)
[2020-05-12 22:25] LABS: GLUCOMETER DEV NAME(LOC) 5S.2A; GLUCOSE,POINT OF CARE 162 MG/DL (70-110)
[2020-05-13 00:47] VITALS: BP 116/46
[2020-05-13] MEDS: ALBUTEROL SULFATE/IPRATROPIUM 100-20 MCG/SPRAY 4 GM INHALER IH SCH ×3 (00:53→12:31)
[2020-05-13 04:51] VITALS: BP 117/89
[2020-05-13] MEDS: INSULIN LISPRO 100 UNITS/ML SQ PRN ×2 (06:18→12:35)
[2020-05-13] MEDS: LOSARTAN POTASSIUM 25 MG TABLET PO SCH (09:00)
[2020-05-13] MEDS: FERROUS SULFATE 325 MG EC TABLET PO SCH ×2 (09:02→12:31)
[2020-05-13] MEDS: DOCUSATE SODIUM 100 MG CAPSULE PO SCH (09:02)
[2020-05-13] MEDS: PANTOPRAZOLE SODIUM 40 MG DR TABLET PO SCH (09:03)
[2020-05-13] MEDS: ASPIRIN 81 MG CHEWABLE TABLET PO SCH (09:03)
[2020-05-13] MEDS: CARVEDILOL 3.125 MG TABLET PO SCH (09:03)
[2020-05-13 09:11] VITALS: BP 139/54
[2020-05-13 15:37] VITALS: BP 150/64
[2020-05-13] MEDS ORDERED: ASPI-728 PO (15:44)
[2020-05-13] MEDS ORDERED: IPRA4AER IH ×2 (15:44→15:54)
[2020-05-13] MEDS ORDERED: CARV3 PO (15:45)
[2020-05-13] MEDS ORDERED: ATOR10TA84 PO (15:45)
[2020-05-13] MEDS ORDERED: DOCU-275 PO (15:46)
[2020-05-13] MEDS ORDERED: FERR-89 PO (15:47)
[2020-05-13] MEDS ORDERED: LOSA25TA71 PO (15:52)
[2020-05-13] MEDS ORDERED: ACET-2247 PO (15:53)
[2020-05-13] MEDS ORDERED: PANT-31 PO (15:53)
[2020-05-13] MEDS ORDERED: BISA-151 PO (15:54)
[2020-05-13] MEDS ORDERED: INSU100V SQ (15:56)
[2020-05-13] MEDS ORDERED: MOM30 PO (15:57)
[2020-05-13] MEDS ORDERED: ONDA4VIA22 IV (15:58)
[2020-05-13 17:35] LABS: GLUCOMETER DEV NAME(LOC) 5N.3; GLUCOSE,POINT OF CARE 167 MG/DL (70-110)
[2020-05-14 11:42] LABS: GLUCOMETER DEV NAME(LOC) 5S.2A; GLUCOSE,POINT OF CARE 187 MG/DL (70-110)
== END 2020-05-13 17:40 | disposition short-term general hospital (02) | DRG 73 ==
LOC: EMS 05:53 → 5N 10:52
PROVIDERS: ADMIT Internal Medicine; ATTEND Internal Medicine
DX: G90.8 Other disorders of autonomic nervous system (principal); I50.33 Acute on chronic diastolic (congestive) heart failure; G45.8 Other transient cerebral ischemic attacks and related syndromes; R55 Syncope and collapse; E11.9 Type 2 diabetes mellitus without complications; E87.6 Hypokalemia; I11.0 Hypertensive heart disease with heart failure; I49.3 Ventricular premature depolarization; I25.2 Old myocardial infarction; J84.10 Pulmonary fibrosis, unspecified; J44.9 Chronic obstructive pulmonary disease, unspecified; D50.9 Iron deficiency anemia, unspecified; I34.0 Nonrheumatic mitral (valve) insufficiency; I48.91 Unspecified atrial fibrillation; F17.210 Nicotine dependence, cigarettes, uncomplicated; Z95.5 Presence of coronary angioplasty implant and graft; Z79.4 Long term (current) use of insulin; Z20.828 Contact with and (suspected) exposure to other viral communicable diseases
CPT/HCPCS: 70450; 70496; 70498; 70551; 71250; 72125; 82270; 82728; 83036; 83540; 83550; 83605; 83735; 84132; 84145; 84439; 84443; 87040; 87205; 93005; 93306; 93880; 93931; 97116; 97162; 97530; 99291; J0456; J0696; J3480; J7030; J7050

== ENCOUNTER 2020-06-27 10:45 | Emergency (ER) | payer MEDICAID, MEDICARE ==
[~2020-06-27] VITALS: Ht 157.5 cm; Wt 75.0 kg
[~2020-06-27 10:45] MED LIST changes: +ACET-2247 PO; -AMLO5TAB9 PO; +ATOR10TA84 PO; -AUD NEB; +BISA-151 PO; +CARV3 PO; +DOCU-275 PO; +FERR-89 PO; +IPRA4AER IH; +LOSA25TA71 PO; -METF-960 PO; +MOM30 PO; +ONDA4VIA22 IV; +PANT-31 PO; -PRED20 PO
[2020-06-27] MEDS ORDERED: LIDOCAINE 5% TRANSDERMAL PATCH TD ONE (11:45)
[2020-06-27] MEDS ORDERED: SODIUM CHLORIDE 0.9% 100 ML ONE (11:59)
[2020-06-27] MEDS ORDERED: IOVERSOL 350 MG/ML 100 ML VIAL ONE (11:59)
[2020-06-27 12:21] LABS: BASOPHILS % (AUTO) 0.3 % (0.0-2.0); EOSINOPHILS % (AUTO) 2.1 % (1.0-6.0); HEMATOCRIT 39.8 % (36-46); HEMOGLOBIN 12.8 g/dL (12.0-16.0); LYMPHOCYTES # (AUTO) 1.3 K/uL (1.0-4.8); LYMPHOCYTES % (AUTO) 14.6 % (22.0-44.0); MEAN CORPUSCULAR HEMOGLOBIN 27.4 pg (26.0-34.0); MEAN CORPUSCULAR HGB CONC 32.2 G/dL (31.0-37.0); MEAN CORPUSCULAR VOLUME 85 fL (80-100); MONOCYTES # (AUTO) 0.5 K/uL (0.1-1.0); MONOCYTES % (AUTO) 5.2 % (2.0-9.0); NEUTROPHILS # (AUTO) 6.8 K/uL (1.8-7.7); NEUTROPHILS % (AUTO) 77.8 % (40.0-70.0); PLATELET COUNT (AUTO) 252 K/uL (150-450); RED BLOOD CELL COUNT(AUTO) 4.67 MIL/uL (4.00-5.20); RED CELL DISTRIBUTION WIDTH 16.6 % (11.5-14.5)
[2020-06-27 12:31] LABS: ANION GAP 4 mmol/L (8-16); CALCIUM, TOTAL 9.8 mg/dL (8.8-10.5); CARBON DIOXIDE 34 mmol/L (22-29); CHLORIDE 103 mmol/L (98-107); CREATININE 0.61 mg/dL (0.60-1.30); GLUCOSE,RANDOM 111 mg/dL (70-110); POTASSIUM 3.9 mmol/L (3.5-5.1); SODIUM SERUM 141 mmol/L (136-145); UREA NITROGEN, BLOOD 13 mg/dL (7-18)
[2020-06-27 12:33] LABS: GLOMERULAR FILTR. RATE CALC > 60 mL/min (>60)
[2020-06-27 12:37] LABS: ALANINE AMINOTRANSFERASE 16 U/L (12-78); ALBUMIN 3.4 g/dL (3.4-5.0); ALKALINE PHOSPHATASE 83 U/L (46-116); ASPARTATE AMINOTRANSFERASE 30 U/L (15-37); BILIRUBIN,TOTAL 0.4 mg/dL (0.1-1.0); PROTHROMBIN TIME 10.1 SEC (9.4-11.6); TOTAL PROTEIN, SERUM 7.4 g/dL (6.4-8.2)
[2020-06-27 19:04] LABS: APPEARANCE,URINE CLEAR (CLEAR); BILIRUBIN,URINE NEGATIVE (NEGATIVE); GLUCOSE, URINE (UA) NEGATIVE (NEGATIVE); KETONES,URINE NEGATIVE (NEGATIVE); LEUKOCYTE ESTERASE ,URINE NEGATIVE (NEGATIVE); NITRATE,URINE NEGATIVE (NEGATIVE); OCCULT BLOOD,URINE NEGATIVE (NEGATIVE); PROTEIN,URINE NEGATIVE (NEGATIVE)
[2020-06-28 09:12] VITALS: BP 145/78
== END 2020-06-27 19:45 | disposition home or self-care (01) ==
LOC: EMS 10:53
DX: M54.5 Low back pain (principal); I10 Essential (primary) hypertension; F17.210 Nicotine dependence, cigarettes, uncomplicated; I25.2 Old myocardial infarction; J44.9 Chronic obstructive pulmonary disease, unspecified; E11.9 Type 2 diabetes mellitus without complications; Z79.82 Long term (current) use of aspirin
CPT/HCPCS: 36415; 71275; 74175; 80053; 81003; 82962; 85025; 85610; 99285; J7050; Q9967; 51701